=== PATIENT | female | born 1965 | race Caucasian/White ===

== ENCOUNTER 2016-11-16 15:21 | Emergency (ER) | payer MEDICAID ==
[2016-11-16] MEDS ORDERED: Sodium Chloride 0.9% 1,000 ML IV STA (15:47)
[2016-11-16] MEDS ORDERED: DiphenhydrAMINE 50 mg/ml Inj IVP STA (15:48)
--- NOTE | 2016-11-16 16:05 | ED PDOC ---
HPI: General Adult Time Seen by Provider: 11/16/16 15:36 Chief Complaint (Nursing): Dizziness/Lightheaded History Per: Patient Additional Complaint(s): Pt. states yesterday she was cleaning her ears and shortly after she noticed some bleeding from the R ear without pain or hearing changes. This morning she woke up and soon after she developed a gradual onset holocephalic headache associated with 2 episodes of non-bloody vomiting and dizziness. Denies abdominal pain, fever, head injury, neck pain, rash, hearing changes, numbness, tingling, weakness. Past Medical History Reviewed: Historical Data, Nursing Documentation, Vital Signs Vital Signs: Last Vital Signs Temp 98.0 F 11/16/16 15:30 Pulse 68 11/16/16 16:07 Resp 16 11/16/16 15:30 BP 115/61 11/16/16 15:30 Pulse Ox 99 11/16/16 16:07 - Medical History PMH: No Chronic Diseases - Family History Family History: States: No Known Family Hx - Home Medications Home Medications: Ambulatory Orders Medication Instructions Recorded Metoclopramide [Reglan] 10 mg PO Q8 PRN #15 tab 11/16/16 - Allergies Allergies/Adverse Reactions: Allergies Allergy/AdvReac Type Severity Reaction Status Date / Time No Known Allergies Allergy Verified 11/16/16 15:34 Review of Systems ROS Statement: Except As Marked, All Systems Reviewed And Found Negative Gastrointestinal: Positive for: Nausea, Vomiting Neurological: Positive for: Headache, Dizziness Physical Exam - Reviewed Nursing Documentation Reviewed: Yes Vital Signs Reviewed: Yes - Physical Exam Appears: Positive for: Well, Non-toxic, No Acute Distress Head Exam: Positive for: ATRAUMATIC, NORMAL INSPECTION, NORMOCEPHALIC Skin: Positive for: Normal Color, Warm. Negative for: Rash Eye Exam: Positive for: Normal appearance, EOMI, PERRL. Negative for: Nystagmus ENT: Positive for: Normal ENT Inspection Neck: Positive for: Normal, Painless ROM Cardiovascular/Chest: Positive for: Regular Rate, Rhythm Respiratory: Positive for: CNT, Normal Breath Sounds Gastrointestinal/Abdominal: Positive for: Normal Exam, Bowel Sounds, Soft. Negative for: Tenderness Back: Positive for: Normal Inspection Extremity: Positive for: Normal ROM Neurologic/Psych: Positive for: Alert, Oriented, Gait (steady, unassisted). Negative for: Aphasia, Facial Droop - Laboratory Results Result Diagrams: 11/16/16 16:54 11/16/16 16:54 - ECG ECG: Positive for: Interpreted By Me ECG Rhythm: Positive for: Sinus Rhythm. Negative for: ST/T Changes Rate: 68 O2 Sat by Pulse Oximetry: 99 - Progress ED Course And Treament: Labs ordered. CT head w/o contrast, IV NS bolus x 1, reglan 10mg IVPB, benadryl 25mg IVPB ordered. 1725 CT head w/o contrast: negative On re-evaluation, pt. reports complete relief of headache, dizziness, and nausea. Disposition - Clinical Impression Clinical Impression: Acute headache - Patient ED Disposition Is Patient to be Admitted: No - Disposition Referrals: [facility] [Outside] Disposition: Routine/Home Disposition Time: 17:30 Condition: IMPROVED Prescriptions: Metoclopramide [Reglan] 10 mg PO Q8 PRN #15 tab PRN Reason: headache or nausea Instructions: Acute Headache (ED) Forms: [facility] (Bengali) Print Language: UKRAINIAN
--- NOTE | 2016-11-16 16:52 | CT ---
PROCEDURE: CT scan of brain dated 11/16/2016 HISTORY: Headache and dizziness. COMPARISON: No prior study available comparison TECHNIQUE: Axial computed tomography images were obtained through the head/brain without intravenous contrast. Radiation dose: Total exam DLP = 830.38 mGy-cm. This CT exam was performed using one or more of the following dose reduction techniques: Automated exposure control, adjustment of the mA and/or kV according to patient size, and/or use of iterative reconstruction technique. FINDINGS: HEMORRHAGE: No acute parenchymal, subarachnoid or extra-axial hemorrhage. BRAIN: No evidence large infarct. Suspect minor chronic periventricular white matter ischemic changes most conspicuous in the periventricular, frontal horn white matter. Tiny calcification within the either within the subarachnoid space or along cortex right parasagittal anterior superior frontal lobe of uncertain etiology ; this could be post traumatic or post/ inflammatory origin. Clinical correlation recommended. . No obvious parenchymal nor extra-axial mass or collection seen on this noncontrast study. Ventricular and sulcal size are within range normal this patient's stated age. VENTRICLES: No evidence obstructive hydrocephalus CALVARIUM: Calvarium appears grossly intact PARANASAL SINUSES: Minor mucosal thickening seen 1 or left-sided ethmoid air MASTOID AIR CELLS: Cells mastoid air complexes well-developed and currently well-aerated. OTHER FINDINGS: None. IMPRESSION: No acute intracranial hemorrhage. Suspect minor chronic periventricular white matter ischemic changes. Tiny nonspecific calcification right frontal lobe as described.
[2016-11-16 17:01] LABS: BASO # 0.1 K/uL (0.0-0.2); BASO % 0.8 % (0.0-2.0); EOS % 0.3 % (0.0-4.0); HEMATOCRIT 38.6 % (34.0-47.0); LYMPH # 1.3 K/uL (1.0-4.3); LYMPH % 15.3 % (20.0-40.0); MEAN CELL VOLUME 82.9 fl (81.0-99.0); MEAN CORPUSCULAR HEMOGLOBIN 26.7 pg (27.0-31.0); MEAN CORPUSCULAR HGB CONC 32.2 g/dL (33.0-37.0); MEAN PLATELET VOLUME 8.1 fl (7.2-11.7); MONO # 0.6 K/uL (0.0-0.8); MONO % 7.3 % (0.0-10.0); NEUT # 6.4 K/uL (1.8-7.0); NEUT % 76.3 % (50.0-75.0); NRBC % 0.1 % (0.0-0.0); RED CELL DISTRIBUTION WIDTH 16.1 % (11.5-14.5); WHITE BLOOD COUNT 8.3 K/uL (4.8-10.8)
[2016-11-16 17:14] LABS: ALB/GLOB RATIO 1.5 (1.0-2.1); ALKALINE PHOSPHATASE 80 U/L (38-126); ALT/SGPT 34 U/L (9-52); AST/SGOT 22 U/L (14-36); BILIRUBIN,TOTAL 0.4 mg/dl (0.2-1.3); BLOOD UREA NITROGEN 10 mg/dl (7-17); CALCIUM 9.5 mg/dL (8.4-10.2); CARBON DIOXIDE 27 mmol/L (22-30); CHLORIDE 106 mmol/L (98-107); GFR AFRICAN-AMERICAN > 60; GLUCOSE,RANDOM 93 mg/dL (65-105); POTASSIUM 4.3 MMOL/L (3.6-5.0); SODIUM 141 mmol/l (132-148); TOTAL PROTEIN 6.8 G/DL (6.3-8.2)
[2016-11-16 18:58] VITALS: BP 124/75; PULSE 74; RESP 14; TEMP 97.2; O2SAT 100
--- NOTE | 2016-11-17 09:13 | CARD ---
APPROVED REPORT EKG Measurement Heart [id number] <Conclusion> Normal sinus rhythm Possible Left atrial enlargement Left ventricular hypertrophy Abnormal ECG
== END 2016-11-16 18:57 | disposition home or self-care (01) ==
LOC: H.ER 15:21
DX: R51 Headache (principal)
CPT/HCPCS: 70450; 80053; 81025; 82948; 85025; 93005; 96374; 99285; J1200; J2765; J7040